=== PATIENT | male | born 1990 | race Caucasian/White ===

== ENCOUNTER 2018-11-24 22:10 | Emergency (ER) | payer BC ==
[2018-11-24] MEDS ORDERED: Fluorescein Sodium TOPICAL* 1 MG TEST STRIP OPHTHALMIC ONE (23:27)
[2018-11-24] MEDS ORDERED: Tetracaine 0.5% OPTH.SOL 4 ML* 1 DROP BTL BOTH EYES SCH (23:30)
--- NOTE | 2018-11-24 23:34 | ED ---
Burn - HPI Summary HPI Summary: 28-year-old male presents with a burn to bilateral eyes. He states he was working with bleach and was spraying it to clean his house due to a mouse infestation. He states that he may have gotten some into his eyes. He states his face feels like it is burning. He took a shower. He tried flushing has eyes in the shower. He does not wear contacts or glasses. He denies any rash. He denies any chest pain or shortness of breath. He states that his nose feels like it is burning. No sore throat. Has no medical conditions. - History of Current Complaint Chief Complaint: EDChemNuclearExpose Stated Complaint: CHEMICAL EXPOSURE Time Seen by Provider: 11/24/18 22:48 Pain Intensity: 3 - Allergy/Home Medications Allergies/Adverse Reactions: Allergies Allergy/AdvReac Type Severity Reaction Status Date / Time lactose Allergy GI Upset Verified 11/24/18 22:14 PMH/Surg Hx/FS Hx/Imm Hx Endocrine/Hematology History: Denies: Hx Anticoagulant Therapy Respiratory History: Denies: Hx Asthma Infectious Disease History: No Infectious Disease History: Denies: Traveled Outside the [place] in Last 30 Days - Family History Known Family History: Positive: Non-Contributory - Social History Alcohol Use: None Substance Use Type: Reports: None Smoking Status (MU): Never Smoked Tobacco Review of Systems Negative: Fever Positive: Other - burning eyes Negative: Chest Pain Negative: Shortness Of Breath Positive: Other - facial burning All Other Systems Reviewed And Are Negative: Yes Physical Exam Triage Information Reviewed: Yes Vital Signs On Initial Exam: Initial Vitals Temp Pulse Resp BP Pulse Ox 97.8 F 95 16 137/81 100 11/24/18 22:13 11/24/18 22:13 11/24/18 22:13 11/24/18 22:13 11/24/18 22:13 Vital Signs Reviewed: Yes Appearance: Positive: Well-Appearing Skin: Positive: Warm, Dry, Other - no rash Head/Face: Positive: Normal Head/Face Inspection Eyes: Positive: Normal, EOMI, MARKELL, Conjunctiva Clear, Other: - no uptake fluroscein exam ENT: Positive: Normal ENT inspection, Pharynx normal, TMs normal Respiratory/Lung Sounds: Positive: Clear to Auscultation, Breath Sounds Present Cardiovascular: Positive: Normal, RRR Musculoskeletal: Positive: Normal Neurological: Positive: Normal Psychiatric: Positive: Normal Burn Calculation - Tow Formula for Fluid Resuscitation Weight: 87.09 kg 24 -Hour Fluid Replacement: 0.0 Procedures - Eye Procedure Left Alcaine Drops Administered: Yes - no uptake on fluroscein exam Right Alcaine Drops Administered: Yes - no uptake on fluroscein exam Diagnostics - Vital Signs Vital Signs Temp Pulse Resp BP Pulse Ox 11/24/18 22:13 97.8 F 95 16 137/81 100 - Laboratory Lab Statement: Any lab studies that have been ordered have been reviewed, and results considered in the medical decision making process. Burn Course/Dx - Course Course Of Treatment: 28-year-old male presents with a burn to bilateral eyes. He states he was working with bleach and was spraying it to clean his house due to a mouse infestation. He states that he may have gotten some into his eyes. He states his face feels like it is burning. He took a shower. He tried flushing has eyes in the shower. He does not wear contacts or glasses. He denies any rash. He denies any chest pain or shortness of breath. He states that his nose feels like it is burning. No sore throat. Has no medical conditions. On exam conjunctiva appear normal. External ocular movements intact. Markell. No rash noted. Irrigated eyes with a Joe lens and feeling better. No uptake on fluorescein exam. Told to continue to flush the eye. Told if he develops continuing pain to follow with ophthalmology. Patient understands agrees with plan. - Diagnoses Differential Diagnoses: Positive: Chemical Burn, Direct Contact Thermal Burn Provider Diagnosis: Accidental exposure to bleach Discharge - Sign-Out/Discharge Documenting (check all that apply): Patient Departure - Discharge Plan Condition: Good Disposition: HOME Patient Education Materials: Chemical Eye [place] (ED) Referrals: No Primary Care Phys,NOPCP [Primary Care Provider] - Benja Tadeo MD [Medical Doctor] - Additional Instructions: flush eye with saline Follow up with optho if any issue changes Return to ED if develop any new or worsening symptoms - Billing Disposition and Condition Condition: GOOD Disposition: Home
[2018-11-24] MEDS ORDERED: Fluorescein Sodium TOPICAL* 1 MG TEST STRIP ONE (23:40)
[2018-11-24] MEDS ORDERED: Tetracaine 0.5% OPTH.SOL 4 ML* 1 DROP BTL ONE (23:40)
== END 2018-11-25 | disposition home or self-care (01) ==
LOC: ED 22:10
DX: T54.3X1A Toxic effect of corrosive alkalis and alkali-like substances, accidental (unintentional), initial encounter (principal); H57.13 Ocular pain, bilateral
CPT/HCPCS: 99282; A9270-GY

== ENCOUNTER 2019-03-08 10:58 | Emergency (ER) | payer BC ==
--- NOTE | 2019-03-08 11:27 | ED ---
Abdominal Pain/Male - HPI Summary HPI Summary: This patient is a 28 year old M presenting to [facility] with a chief complaint of abdominal bloating that began one week ago and worsened yesterday night. The patient rates the pain 3/10 in severity. Symptoms aggravated by nothing. Symptoms alleviated by nothing. Patient reports abd pain, frequent burping, postnasal drip, nausea, abdominal cramping, nasal congestion, chills, and sore throat. Patient denies fever, diarrhea, CP, SOB, cough, vomiting, dysuria, hematuria, myalgia, edema, rash, dizziness, and erythema of the eyes. Patient states he has a history of GI issues and is on omeprazole. Patient states he defecates almost every hour with stringy stool. He states these symptoms began prior to starting antibiotics. - History of Current Complaint Chief Complaint: EDShuuseaVomitDiarrh Stated Complaint: BLOATING, NAUSEA PER PT Time Seen by Provider: 03/08/19 11:16 Hx Obtained From: Patient Onset/Duration: Sudden Onset, Lasting Weeks, Worse Since - Yesterday night Timing: Constant Severity Initially: Mild Severity Currently: Mild Pain Intensity: 3 Pain Scale Used: 0-10 Numeric Location: Diffuse Radiates: No Aggravating Factor(s): Nothing Alleviating Factor(s): Nothing Associated Signs And Symptoms: Positive: Other - Positive abd pain, hematochezia , frequent burping, postnasal drip, nausea, abdominal cramping, nasal congestion , chills, and sore throat. Negative fever, diarrhea, vomiting, and erythema in the eyes. - Allergies/Home Medications Allergies/Adverse Reactions: Allergies Allergy/AdvReac Type Severity Reaction Status Date / Time lactose Allergy GI Upset Verified 03/08/19 11:01 PMH/Surg Hx/FS Hx/Imm Hx Previously Healthy: Yes Endocrine/Hematology History: Denies: Hx Anticoagulant Therapy Respiratory History: Denies: Hx Asthma Opthamlomology History: Denies: Hx Legally Blind EENT History: Denies: Hx Deafness Infectious Disease History: No Infectious Disease History: Denies: Traveled Outside the [place] in Last 30 Days - Family History Known Family History: Positive: Cardiac Disease, Diabetes - Social History Occupation: Employed Full-time Lives: With Family Alcohol Use: None Hx Substance Use: No Substance Use Type: Reports: None Hx Tobacco Use: No Smoking Status (MU): Never Smoked Tobacco Review of Systems Positive: Chills. Negative: Fever Negative: Erythema ENT: Other - Positive postnasal drip Positive: Sore Throat, Other - Positive nasal congestion Negative: Chest Pain Negative: Shortness Of Breath, Cough Positive: Abdominal Pain, Nausea, Other - Positive frequent burping and abdominal cramping. Negative: Vomiting, Diarrhea Negative: dysuria, hematuria Negative: Myalgia, Edema Negative: Rash Neurological: Other - Negative dizziness All Other Systems Reviewed And Are Negative: Yes Physical Exam - Summary Physical Exam Summary: Constitutional: Well-developed, Well-nourished, Alert. (-) Distressed Skin: Warm, Dry HENT: Normocephalic; Atraumatic Eyes: Conjunctiva normal Neck: Musculoskeletal ROM normal neck. (-) JVD, (-) Stridor, (-) Tracheal deviation Cardio: Rhythm regular, rate normal, Heart sounds normal; Intact distal pulses; The pedal pulses are 2+ and symmetric. Radial pulses are 2+ and symmetric. (-) Murmur Pulmonary/Chest wall: Effort normal. (-) Respiratory distress, (-) Wheezes, (-) Rales Abd: Soft, (-) tenderness, (-) Distension, (-) Guarding, (-) Rebound Musculoskeletal: (-) Edema Lymph: (-) Cervical adenopathy Neuro: Alert, Oriented x3 Psych: Mood and affect Normal Triage Information Reviewed: Yes Vital Signs On Initial Exam: Initial Vitals Temp Pulse Resp BP Pulse Ox 98 F 74 16 143/80 98 03/08/19 11:01 03/08/19 11:01 03/08/19 11:01 03/08/19 11:01 03/08/19 11:01 Vital Signs Reviewed: Yes Diagnostics - Vital Signs Vital Signs Temp Pulse Resp BP Pulse Ox 03/08/19 11:01 98 F 74 16 143/80 98 - Laboratory Lab Statement: Any lab studies that have been ordered have been reviewed, and results considered in the medical decision making process. Abdominal Pain Male Course/Dx - Course Course Of Treatment: This patient is a 28 year old M presenting to [facility] with a chief complaint of abdominal bloating that began one week ago and worsened yesterday night. He states these symptoms began prior to starting antibiotics. Physical Exam Findings: Nml. Stool sample obtained. Patient was advised to stop all antibiotics and follow up with his primary care and GI doctor. Patient will be discharged with prescription for Sudafed and Carafate and with follow up from PCP and GI doctor. The patient is agreeable with this plan. - Diagnoses Provider Diagnoses: Dyspepsia Discharge - Sign-Out/Discharge Documenting (check all that apply): Patient Departure - Discharged home Patient Received Moderate/Deep Sedation with Procedure: No - Discharge Plan Condition: Stable Disposition: HOME Prescriptions: Sucralfate TAB* [Carafate*] 1 gm PO QID #20 tab Patient Education Materials: Indigestion (ED) Referrals: [facility] [place] PHYSICIAN REFERRAL [Outside] - 2 Days Additional Instructions: DISCONTINUE ALL OF YOUR ANTIBIOTICS RETURN TO THE EMERGENCY DEPARTMENT FOR NEW OR WORSENING SYMPTOMS FOLLOW UP WITH YOUR GI DOCTOR IN 2-3 DAYS - Billing Disposition and Condition Condition: STABLE Disposition: Home - Attestation Statements Document Initiated by Lizibe: Yes Documenting Scribe: Tana Moody Provider For Whom Lizibe is Documenting (Include Credential): Dr. Jean Paul Ireland MD Scribe Attestation: ITana scribed for Dr. Jean Paul Ireland MD on 03/12/19 at 1354. Scribe Documentation Reviewed: Yes Provider Attestation: The documentation as recorded by the Tana cool accurately reflects the service I personally performed and the decisions made by me, Dr. Jean Paul Ireland MD Status of Scribe Document: Viewed
[2019-03-08 11:53] VITALS: BP 113/76
== END 2019-03-08 11:51 | disposition home or self-care (01) ==
LOC: ED 10:58
DX: R10.13 Epigastric pain (principal)
CPT/HCPCS: 99282